=== PATIENT | female | born 1940 | race Caucasian/White ===

== ENCOUNTER 2020-05-03 06:30 | Outpatient (CLI) | payer MEDICARE, OTHER ==
[2020-05-03 14:23] LABS: Hemoglobin 12.2 g/dL (12.0-16.0); Mean Corpuscular HGB CONC 33.4 g/dL (32.0-36.0); Mean Corpuscular Volume 95.6 fL (78.0-98.0); Mean Platelet Volume 8.8 fL (7.4-10.4); Platelet Count 210 thou/uL (130-400); RBC Distribution Width 12.4 % (11.5-14.5); Red Blood Cell (RBC) Count 3.81 mill/uL (4.20-5.40); White Blood Cell (WBC) Count 5.8 thou/uL (4.8-10.8)
[2020-05-03 14:46] LABS: Anion Gap 10 mmol/L (10-20); BUN (Urea Nitrogen) 16 mg/dL (9.8-20.1); Calc. Creatinine Clearance 0 mL/min (70-130); Calcium 9.7 mg/dL (7.8-10.44); Carbon Dioxide 29 mmol/L (23-31); Chloride 105 mmol/L (98-107); Estimated GFR-MDRD 65; Glucose 108 mg/dL (83-110); Potassium 4.1 mmol/L (3.5-5.1); Sodium 140 mmol/L (136-145)
[2020-05-04 14:25] LABS: SARS-CoV-2 MS2 Positive; SARS-CoV-2 N Gene Negative; SARS-CoV-2 S Gene Negative; SARS-CoV-2 orf1ab Negative
== END 2020-05-03 06:31 | disposition home or self-care (01) ==
LOC: LABBT 06:30
PROVIDERS: ATTEND Thoracic Surgery (Cardiothoracic Vascular Surgery)
DX: Z01.812 Encounter for preprocedural laboratory examination (principal); Z11.59 Encounter for screening for other viral diseases; I65.29 Occlusion and stenosis of unspecified carotid artery
CPT/HCPCS: 80048; 85027; U0003; 87635

== ENCOUNTER 2020-05-03 10:30 | Inpatient (IN) | payer MEDICARE, OTHER ==
[2020-05-07] MEDS ORDERED: Nitroglycerin 50 MG/250 ML BOT 250 ML ONE (06:26)
[2020-05-07] MEDS ORDERED: Phenylephrine 10 MG/ML VIAL ONE (06:26)
[2020-05-07] MEDS ORDERED: Fentanyl 100 MCG/2 ML VIAL ONE ×2 (06:26→13:08)
[2020-05-07] MEDS ORDERED: Protamine Sulfate 50 MG/5 ML VIAL ONE (06:33)
[2020-05-07] MEDS ORDERED: Heparin 5,000 UNITS/ML VIAL ONE (06:33)
[2020-05-07] MEDS ORDERED: SUGAMMADEX SODIUM 200 MG/2 ML VIAL ONE (09:41)
[2020-05-07] MEDS ORDERED: traMADol HCl 50 MG TAB PO PRN (10:31)
[2020-05-07] MEDS ORDERED: niCARdipine 25 MG in Sodium Chloride 0.9% 250 ML 250 ML IVPB PRN (10:31)
[2020-05-07] MEDS ORDERED: Norepinephrine 8 MG/0.9% NS 250 ML IVPB PRN (10:31)
[2020-05-07] MEDS ORDERED: Ondansetron PF 4 MG/2 ML Vial IVP PRN (10:31)
[2020-05-07] MEDS ORDERED: Acetaminophen 325 MG TAB PO PRN (10:31)
[2020-05-07] MEDS ORDERED: Fentanyl 100 MCG/2 ML VIAL SLOW IVP PRN (10:31)
[2020-05-07] MEDS ORDERED: niCARdipine 25 MG in Sodium Chloride 0.9% 250 ML 240 ML IVPB PRN (11:16)
--- NOTE | 2020-05-07 11:31 | OP ---
DATE OF PROCEDURE: 05/07/2020 PREOPERATIVE DIAGNOSIS: Left carotid stenosis. PROCEDURE PERFORMED: Left carotid endarterectomy with bovine patch angioplasty. ANESTHESIA: General. ESTIMATED BLOOD LOSS: 100. DESCRIPTION OF PROCEDURE: After adequate anesthesia had been obtained, the patient was prepped and draped. Ultrasound was used to guide the incision and location. An incision was made. It was somewhat lower than anticipated in relation to the carotid bulb, then was extended superiorly. Common internal and external carotid arteries were isolated. Hypoglossal nerve was identified and avoided. After 7500 units of heparin and good ACT level, clamps were applied, arteriotomy performed, and a 12-[place] shunt was placed. Endarterectomy was performed, following which the area was thoroughly irrigated and a bovine patch was used to close the arteriotomy. Prior to completing the suture line, the shunt was removed. Protamine was given to partially reverse the heparin, and after a prolonged period of time awaiting for needle-hole hemostasis, the wound was irrigated and closed in layers and the patient was to be taken to the ICU in guarded condition. Job ID: [id number]
[2020-05-07] MEDS ORDERED: Succinylcholine Chloride 20 MG/ML 10 ml SYRINGE FS ONE (11:51)
[2020-05-07] MEDS ORDERED: Rocuronium Bromide 10 MG/ML (10ML VIAL) ONE (11:51)
[2020-05-07] MEDS ORDERED: Lidocaine 1% PF 5 ML VIAL ONE (11:51)
[2020-05-07] MEDS ORDERED: Ondansetron PF 4 MG/2 ML Vial ONE (11:51)
[2020-05-07] MEDS ORDERED: PROPOFOL 200 MG/20 ML VIAL ONE (11:51)
[2020-05-07] MEDS ORDERED: Losartan 25 MG TAB PO SCH (15:15)
[2020-05-07] MEDS: CEFAZOLIN 2 GM in Premix Bag 1 BAG IVPB SCH ×2 (15:17→21:28)
[2020-05-07] MEDS: Sodium Chloride 0.9% 1,000 ML IV SCH (15:17)
[2020-05-07 15:19] VITALS: BMI 24.6
[2020-05-07] MEDS: hydrALAZINE 20 MG/ML VIAL SLOW IVP PRN (17:23)
[2020-05-07] MEDS ORDERED: traZODone HCl 50 MG TAB PO SCH (21:00)
[2020-05-07] MEDS ORDERED: Atorvastatin Calcium 20 MG TAB PO SCH (21:00)
[2020-05-08] MEDS: Sodium Chloride 0.9% 1,000 ML IV SCH (01:15)
[2020-05-08 04:52] VITALS: TEMP 98.1
[2020-05-08] MEDS: hydrALAZINE 20 MG/ML VIAL SLOW IVP PRN (04:53)
[2020-05-08] MEDS: CEFAZOLIN 2 GM in Premix Bag 1 BAG IVPB SCH (04:54)
[2020-05-08 07:37] VITALS: BP 159/69
[2020-05-08] MEDS ORDERED: Clopidogrel Bisulfate 75 MG TAB PO SCH (09:00)
[2020-05-08] MEDS ORDERED: Losartan 25 MG TAB PO SCH (09:00)
[2020-05-08] MEDS ORDERED: Aspirin Chewable 81 MG TAB PO SCH (09:00)
--- NOTE | 2020-05-08 11:37 | DIS ---
DATE OF ADMISSION: 05/07/2020 DATE OF DISCHARGE: 05/08/2020 HOSPITAL COURSE: The patient was admitted to the hospital, where she underwent elective left carotid endarterectomy. Postoperative course was significant only for some mild hypertension. She will be discharged home on her home medications with no prescriptions. Discharge and followup instructions have been given. Job ID: [id number]
== END 2020-05-08 08:30 | disposition home or self-care (01) | DRG 39 ==
LOC: SURG A 05-07 05:58 → EDSTATUS 05-07 10:30 → 2SE 05-07 14:57
PROVIDERS: ADMIT Thoracic Surgery (Cardiothoracic Vascular Surgery); ATTEND Thoracic Surgery (Cardiothoracic Vascular Surgery)
PROC: 03CL0ZZ Extirpation of Matter from Left Internal Carotid Artery, Open Approach (ICD-10-PCS; principal; 2020-05-07)
PROC: 03UL0KZ Supplement Left Internal Carotid Artery with Nonautologous Tissue Substitute, Open Approach (ICD-10-PCS; 2020-05-07)
DX: I65.22 Occlusion and stenosis of left carotid artery (principal); I10 Essential (primary) hypertension; E78.00 Pure hypercholesterolemia, unspecified; K21.9 Gastro-esophageal reflux disease without esophagitis; Z85.038 Personal history of other malignant neoplasm of large intestine
CPT/HCPCS: J0360; J0690; J1642; J1644; J2001; J2370; J2405; J2704; J2720; J3010

== ENCOUNTER 2020-11-08 20:10 | Inpatient (IN) | payer MEDICARE, OTHER ==
[~2020-11-08 20:10] MED LIST: Iopamidol-370 76% 500 ML 1 ML ONE
[2020-11-08 21:03] LABS: #Eosinphils 0.1 thou/uL (0.0-0.7); #Lymphocytes 2.9 thou/uL (1.20-3.40); #Monocytes 0.5 thou/uL (0.11-0.59); #Neutrophils 3.6 thou/uL (1.40-6.50); %Basophils 0.5 % (0.0-1.0); %Lymphocytes 40.2 % (21.0-51.0); %Monocytes 7.5 % (0.0-10.0); %Neutrophils 49.9 % (42.0-75.0); Hemoglobin 9.9 g/dL (12.0-16.0); Mean Corpuscular HGB CONC 33.4 g/dL (32.0-36.0); Mean Corpuscular Hemoglobin 31.1 pg (27.0-31.0); Mean Corpuscular Volume 93.2 fL (78.0-98.0); Mean Platelet Volume 8.3 fL (7.4-10.4); Platelet Count 223 thou/uL (130-400); RBC Distribution Width 12.1 % (11.5-14.5); Red Blood Cell (RBC) Count 3.18 mill/uL (4.20-5.40); White Blood Cell (WBC) Count 7.2 thou/uL (4.8-10.8)
[2020-11-08 21:09] LABS: PTT 26.6 sec (22.9-36.1); Prothrombin Time 12.9 sec (12.0-14.7)
[2020-11-08 21:24] LABS: ALT (SGPT) 15 U/L (8-55); AST (SGOT) 17 U/L (5-34); Albumin 3.8 g/dL (3.4-4.8); Alkaline Phosphatase 61 U/L (40-110); Anion Gap 13 mmol/L (10-20); BUN (Urea Nitrogen) 25 mg/dL (9.8-20.1); Bilirubin, Total 0.2 mg/dL (0.2-1.2); Calc. Creatinine Clearance 0 mL/min (70-130); Calcium 9.1 mg/dL (7.8-10.44); Carbon Dioxide 25 mmol/L (23-31); Chloride 104 mmol/L (98-107); Globulin 2.8 g/dL (2.4-3.5); Glucose 91 mg/dL (83-110); Potassium 4.2 mmol/L (3.5-5.1); Protein, Total 6.6 g/dL (6.0-8.3); Sodium 138 mmol/L (136-145)
--- NOTE | 2020-11-08 22:09 | CT ---
CT ABDOMEN WITH CONTRAST CT PELVIS WITH CONTRAST: DATE: 11/08/2020 HISTORY: 79-year-old female with abdominal pain and bloody diarrhea COMPARISON: 05/17/2009 TECHNIQUE: IV injection of iodinated contrast media: administered. Oral contrast media:Not administered FINDINGS: Again noted are the multiple surgical clips in the right groin. 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 Again noted are the old healed fracture deformities of bilateral inferior pelvic rami. Small sliding hiatal hernia. Again noted is suture lines around a loop of bowel at midline in the lower anterior peritoneal cavity . Now, that bowel loop, which is a ptotic midline portion of the transverse colon, is fluid-filled and mildly distended to caliber of 4 cm, but without mural thickening. The rest of the right colon is surgically absent, and this transverse colon is anastomosed to small b owel loops. Sigmoid colonic diverticulosis without diverticulitis. Fluid throughout the lumen of the sigmoid, descending, and left half of transverse colon. Questionable fatty liver. No intrahepatic biliary dilation. Dilation of the common bile duct greater than before, due to the caliber of 11 mm. This is probably d ue to reservoir effect from cholecystectomy. Clips in gallbladder fossa. No hydronephrosis. No adrenal mass. Mild diffuse dilation of pancreatic duct, slightly greater than before. No pancreatic mass or acute pancreatitis identified. No splenomegaly. No ascites or pneumoperitoneum. No consolidation or pleural effusion at lung bases Urinary bladder decompressed. IMPRESSION: 1) status post right hemicolectomy, and small bowel to transverse colon anastomosis. 2) liquid colonic stool consistent with diarrhea. 3) small sliding hiatal hernia. 4) status post cholecystectomy 5) aneurysm of right common femoral artery, unchanged since 2008.:
[2020-11-08] MEDS ORDERED: Acetaminophen 325 MG TAB PO PRN (23:07)
[2020-11-08] MEDS ORDERED: Ondansetron PF 4 MG/2 ML Vial IVP PRN (23:07)
[2020-11-08] MEDS ORDERED: Ondansetron ODT 4 MG TAB PO PRN (23:07)
[2020-11-08] MEDS ORDERED: Pantoprazole 40 MG VIAL IVP SCH (23:15)
[2020-11-09 00:03] LABS: Iron 41 ug/dL (50-170); Iron Binding Capacity, Total 289 mcg/dL (265-497)
--- NOTE | 2020-11-09 00:22 | HP ---
PRIMARY CARE DOCTOR: Dr. Campo. CHIEF COMPLAINT: Bloody diarrhea. HISTORY OF PRESENT ILLNESS: The patient is a 79-year-old female with a past medical history significant for colon cancer, status post right hemicolectomy and small bowel to transverse colon anastomosis (2008), CAD x2 stents, on Plavix and aspirin, bilateral CEA, HTN, HLD, and GERD that presents to the emergency department for the above complaint. The patient reports having approximately eight bloody loose stools today, described as bright red in color. She is on aspirin and Plavix. She took her plavix this morning. She takes aspirin at night and has not taken at this time. Her last colonoscopy was three years ago by Dr. Gonsalez, who has since retired. 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 She denies any abdominal pain, nausea, vomiting, or hemoptysis. She denies any urinary symptoms. She denies any chest pain, heart palpitations, lightheadedness, or shortness of breath. She denies any fever or chills. She has no known ill contacts. In the emergency department, the patient presented hypertensive with normal pulse, respirations, SpO2. She is afebrile. CT of the abdomen and pelvis did show the surgical changes. It did show liquid stools consistent with diarrhea in the colon. The patient's hemoglobin was 9.9, hematocrit was 29.6. PT 12.9, INR 1.0. BUN was elevated at 25. The patient is going to be admitted up to the floor for further evaluation. PAST MEDICAL HISTORY: 1. Colon cancer (2008, status post right hemicolectomy and small bowel to transverse colon anastomosis). 2. Hypertension. 3. Hyperlipidemia. 4. GERD. 5. CAD x2 stents (). PAST SURGICAL HISTORY: 1. CAD x2. 2. Bilateral CEA. 3. Appendectomy. 4. Colectomy. SOCIAL HISTORY: The patient lives with her significant other. She is a former smoker, quit greater than 30 years ago. She denies any heavy alcohol or illicit drug use. She is retired and is independent, ambulates without any assistive devices. FAMILY HISTORY: Contributory for cardiac disease, her father of a heart attack at age 53. ALLERGIES: 1. ADHESIVE TAPE. 2. CODEINE. HOME MEDICATIONS: 1. Plavix 75 mg p.o. daily. 2. Aspirin 81 mg p.o. daily. 3. Atorvastatin 20 mg p.o. at bedtime. 4. Amlodipine 5 mg p.o. q.a.m. 5. Olmesartan 20 mg p.o. q.a.m. 6. Esomeprazole 40 mg p.o. q.a.m. 7. Trazodone 50 mg p.o. at bedtime. 8. Alendronate 70 mg once a week in the morning. REVIEW OF SYSTEMS: All review of systems are negative unless otherwise stated in the HPI. PHYSICAL EXAMINATION: VITAL SIGNS: Temperature 97.7, blood pressure 125/58, pulse 79, respirations 18, 98% on room air. Pain 0/10. CONSTITUTIONAL: The patient appears comfortable, lying in bed, reading a book. No acute distress. Nontoxic in appearance. HEAD: Atraumatic, normocephalic. EYES: PERRLA. Extraocular muscles intact. Sclerae nonicteric. ENT: Oropharynx is clear. Uvula midline. No oral lesions. Moist mucous membranes. NECK: Full range of motion. No cervical spinous tenderness. RESPIRATORY/CHEST: Respirations are even and unlabored. Clear to auscultation. No rhonchi, wheezes, or rales. CARDIOVASCULAR: S1 and S2 appreciated. No murmurs, rubs, or gallops. ABDOMEN: Soft, nontender, nondistended. Active bowel sounds. No guarding. No rigidity. No rebound. Negative Rovsing's sign. Negative Heath sign. BACK: Full range of motion. No central spinous tenderness. No CVA tenderness. EXTREMITIES: Bilateral upper extremities are full range of motion, normal strength, sensation intact. Palpable radial pulses. Lower extremities; full range of motion, normal strength, sensation intact. Palpable pedal pulses, no swelling. NEUROLOGIC: A and O x4. GCS 15. PSYCHIATRIC: Denies SI and HI. LABORATORY DATA AND DIAGNOSTICS: CT abdomen and pelvis, impression: 1. Status post right hemicolectomy, and small bowel to transverse colon anastomosis. 2. Liquid colonic stool consistent with diarrhea. 3. Small sliding hiatal hernia. 4. Status post cholecystectomy. 5. Aneurysm of right common femoral artery, unchanged since 2008. WBC 7.2, hemoglobin 9.9, hematocrit 29.6, platelets 223. Coags; PT is 12.9, INR 1.0, aPTT 26.6, sodium 138, potassium 4.2, chloride 104, carbon dioxide 25, BUN 25, creatinine 0.82, glucose 91, calcium 9.1, total bilirubin 0.2, AST 17, ALT 15, alkaline phosphatase 61, albumin 3.8. IMPRESSION: 1. Lower gastrointestinal bleed. 2. Acute blood loss anemia. 3. History of colon cancer, status post right hemicolectomy with small bowel to colon anastomosis. 4. Hypertension. 5. Hyperlipidemia. 6. Gastroesophageal reflux disease. 7. Coronary artery disease. PLAN: A 79-year-old female presents for eight episodes of bloody diarrhea in the setting of remote colon cancer, status post right hemicolectomy with small bowel colon anastomosis, and CAD, taking aspirin and Plavix. The patient's vital signs are stable. We will type and screen, trend H and H q.4 hours. Check orthostatic vital signs and iron studies. We will consult Gastroenterology. We will make the patient n.p.o. with ice chips. We will hold all blood thinning medications. We will start PPIs. We will restart her home medications for HTN, HLD, GERD, and CAD when appropriate. No pharmacological DVT prophylaxis. SCDs for deep venous thrombosis prophylaxis. Protonix for gastrointestinal prophylaxis. Code status is full code. Discussed the case with attending physician, Dr. Maloney. Job ID: [id number] MTDD
[2020-11-09 00:27] LABS: Ferritin 50.77 ng/mL (10-291)
[2020-11-09 01:29] LABS: Hemoglobin 9.1 g/dL (12.0-16.0)
[2020-11-09 01:53] VITALS: BMI 23.3
[2020-11-09 06:01] LABS: SARS-CoV-2 MS2 Positive; SARS-CoV-2 N Gene Negative; SARS-CoV-2 S Gene Negative; SARS-CoV-2 by NAA Not Detected (NotDetected); SARS-CoV-2 orf1ab Negative
[2020-11-09 06:04] LABS: #Eosinphils 0.1 thou/uL (0.0-0.7); #Lymphocytes 2.4 thou/uL (1.20-3.40); #Monocytes 0.5 thou/uL (0.11-0.59); %Basophils 0.5 % (0.0-1.0); %Eosinophils 1.3 % (0.0-10.0); %Lymphocytes 30.2 % (21.0-51.0); %Monocytes 5.6 % (0.0-10.0); %Neutrophils 62.5 % (42.0-75.0); Hemoglobin 8.7 g/dL (12.0-16.0); Mean Corpuscular Hemoglobin 32.8 pg (27.0-31.0); Mean Corpuscular Volume 93.8 fL (78.0-98.0); Platelet Count 171 thou/uL (130-400); RBC Distribution Width 12.1 % (11.5-14.5); Red Blood Cell (RBC) Count 2.66 mill/uL (4.20-5.40); White Blood Cell (WBC) Count 8.1 thou/uL (4.8-10.8)
[2020-11-09 06:09] LABS: ALT (SGPT) 13 U/L (8-55); AST (SGOT) 17 U/L (5-34); Albumin 3.4 g/dL (3.4-4.8); Alkaline Phosphatase 46 U/L (40-110); Anion Gap 13 mmol/L (10-20); BUN (Urea Nitrogen) 25 mg/dL (9.8-20.1); Bilirubin, Total 0.3 mg/dL (0.2-1.2); Calc. Creatinine Clearance 54 mL/min (70-130); Calcium 8.5 mg/dL (7.8-10.44); Carbon Dioxide 22 mmol/L (23-31); Chloride 106 mmol/L (98-107); Globulin 2.3 g/dL (2.4-3.5); Glucose 109 mg/dL (83-110); Potassium 4.3 mmol/L (3.5-5.1); Protein, Total 5.7 g/dL (6.0-8.3); Sodium 137 mmol/L (136-145)
[2020-11-09] MEDS: Pantoprazole 40 MG VIAL IVP SCH ×2 (08:31→20:17)
[2020-11-09 09:41] LABS: Hemoglobin 9.2 g/dL (12.0-16.0)
[2020-11-09 13:02] LABS: Hemoglobin 8.7 g/dL (12.0-16.0)
[2020-11-09] MEDS: Sodium Chloride 0.9% 1,000 ML IV SCH (13:59)
--- NOTE | 2020-11-09 14:01 | CON ---
DATE OF CONSULTATION: 11/09/2020 CONSULTING PHYSICIAN: Michael Mai NP REASON FOR CONSULT: GI bleed. HISTORY OF PRESENT ILLNESS: Ms. Quick is a 79-year-old female, who became ill acutely yesterday with diarrhea and blood. She had about 6 stools, became more bloody. There was no associated cramps or abdominal pain. She reports this was maroon to red. She called her primary physician, Dr. Campo, who recommended that if it persists to come into the emergency room, which she ultimately did, and in the emergency room, she had stable vital signs and no fever. She has been made n.p.o. She has been given no IV fluids. She has been started on some Zofran and some IV Protonix q.12 hours. The patient states she has not had anything like this in the past. She has had no cramps with this or pain. She has had no nausea, or vomiting. She denies taking NSAIDs. She is on Plavix. She had an EGD and colonoscopy by my partner, Dr. Tejinder Gonsalez in 2016 for reflux and a history of colon cancer, which was removed in 2008. She has been without disease. She had no polyps at that time. She had random colon biopsies taken for chronic diarrhea, which were negative. The only thing that has changed recently with medications is that she was put on Augmentin for 7 days in anticipation of a root canal, and she wonders if that caused the diarrhea. She denies taking NSAIDs. She denies having any sick contacts or eating out. Her hemoglobin in April was 12; on admission yesterday at 2044, it was 9.9, it is 8.7 this morning. LABORATORY DATA: White count was normal. INR was 1. BMP was notable for a BUN of 25 with creatinine of 0.79. Normal liver function test. Folate of 16, iron 41, sat 14%, TIBC 289, and ferritin 55. Her last CEA was 1.7 in 2011. PAST MEDICAL HISTORY: Reflux, hypertension, hyperlipidemia. PAST SURGICAL HISTORY: She has had a cardiac stent 2017. She had a carotid endarterectomy in 2019. She had a cholecystectomy and right hemicolectomy in 2008, appendectomy. ALLERGIES: SHE HAS ALLERGIES TO CODEINE. SOCIAL HISTORY: The patient lives with her significant other. Her several years ago. Former smoker. She quit 30 years ago. She does not drink, smoke, or use drugs otherwise. FAMILY HISTORY: Cardiac disease. Father of heart attack, and father had colon cancer. She had a sister with a duodenal cancer, and mother had gastric cancer. HOME MEDICATIONS: 1. Plavix. 2. Aspirin. 3. Atorvastatin. 4. Amlodipine. 5. Olmesartan. 6. Omeprazole. 7. Trazodone. 8. Alendronate. 9. Protonix 40 IV q.12. 10. Zofran. 11. Tylenol. REVIEW OF SYSTEMS: Negative for shortness of breath. She is mildly dizzy. She has not had much urine output. She is very thirsty. She denies any chest pain or shortness of breath, and dyspnea on exertion. PHYSICAL EXAMINATION: VITAL SIGNS: Temperature is 98, pulse 57, blood pressure 129/72. She had a blood pressure of 119/56 on admission sitting, 106/48 standing, 99/58 lying down, 145/67 that was before this morning. GENERAL: She is alert and oriented. HEENT: She has a mildly pale conjunctivae. Oropharynx, no lesions. NECK: Supple. LUNGS: Clear. HEART: Regular without clicks or murmurs. ABDOMEN: Soft and nontender. There is a midline scar without evidence of hernias. There is no palpable hepatosplenomegaly. EXTREMITIES: No clubbing, cyanosis, or edema. RECTAL EXAMINATION: Reveals melenic looking stool. ASSESSMENT: 1. GI bleeding. This may be associated with a diarrheal illness. Her CAT scan showed no overt colonic thickening. This may just be a straight up GI bleed. I do not think she has recurrent cancer. She has had a colonoscopy 3 years ago with no polyps. She is on Plavix and aspirin, but she is on a PPI at home. Diverticular bleeding will be a consideration if she has pandiverticulosis, anastomotic bleeding, or even upper GI bleeding would be all considerations. An infectious etiology is considered as would be Clostridium difficile. 2. Volume depletion. She is orthostatic at 4 O'clock this morning. She is on no IV fluids. It is not clear if she has received any IV fluids. 3. She is hemodynamically stable. 4. History of reflux. 5. History of colon cancer, seemingly in remission. 6. Dilated common bile duct, 11 mm likely previous cholecystectomy, although she does have some family history of duodenal cancers. Mild dilatation of the pancreatic duct on CT with normal liver enzymes. 7. Aneurysm of the right common femoral artery, unchanged from 2009. RECOMMENDATIONS: 1. IV Protonix q.12h. 2. Start IV fluids. 3. EGD and colonoscopy tomorrow. 4. Stool studies as ordered. Job ID: [id number]
--- NOTE | 2020-11-09 16:24 | PDOC.BPN ---
- Brief Progress Note Encounter Date: 11/09/20 Encounter Time: 09:00 patient seen on f/u for gi bleeding. recently admitted checking HG every 6hrs, seen by GI. will undergo egd and colonoscopy tomorrow. patient refers further episodes of bloody stool, one during the night and other in AM. mild decrease HG noted, but not significant, will continue to monitor. denies any chest pain sob or palpitations.
[2020-11-09] MEDS ORDERED: GoLYTELY 4,000 ml Bottle PO SCH (17:00)
[2020-11-09 17:36] LABS: Hemoglobin 8.1 g/dL (12.0-16.0)
[2020-11-09 21:13] LABS: Hemoglobin 8.4 g/dL (12.0-16.0); Mean Corpuscular HGB CONC 32.6 g/dL (32.0-36.0); Mean Corpuscular Hemoglobin 30.6 pg (27.0-31.0); Mean Corpuscular Volume 93.8 fL (78.0-98.0); Mean Platelet Volume 8.5 fL (7.4-10.4); Platelet Count 208 thou/uL (130-400); RBC Distribution Width 12.3 % (11.5-14.5); Red Blood Cell (RBC) Count 2.75 mill/uL (4.20-5.40); White Blood Cell (WBC) Count 7.1 thou/uL (4.8-10.8)
[2020-11-10] MEDS: Sodium Chloride 0.9% 1,000 ML IV SCH ×2 (05:18→16:07)
[2020-11-10 07:26] LABS: #Eosinphils 0.2 thou/uL (0.0-0.7); #Lymphocytes 2.1 thou/uL (1.20-3.40); #Monocytes 0.5 thou/uL (0.11-0.59); #Neutrophils 2.3 thou/uL (1.40-6.50); %Basophils 0.3 % (0.0-1.0); %Eosinophils 3.2 % (0.0-10.0); %Lymphocytes 41.1 % (21.0-51.0); %Monocytes 9.9 % (0.0-10.0); %Neutrophils 45.6 % (42.0-75.0); Hemoglobin 7.6 g/dL (12.0-16.0); Mean Corpuscular HGB CONC 33.8 g/dL (32.0-36.0); Mean Corpuscular Hemoglobin 31.8 pg (27.0-31.0); Mean Corpuscular Volume 94.2 fL (78.0-98.0); Platelet Count 178 thou/uL (130-400); RBC Distribution Width 12.6 % (11.5-14.5); White Blood Cell (WBC) Count 5.1 thou/uL (4.8-10.8)
[2020-11-10 07:31] LABS: Hemoglobin 7.5 g/dL (12.0-16.0); Mean Corpuscular HGB CONC 32.7 g/dL (32.0-36.0); Mean Corpuscular Hemoglobin 30.7 pg (27.0-31.0); Mean Corpuscular Volume 93.9 fL (78.0-98.0); Mean Platelet Volume 8.6 fL (7.4-10.4); Platelet Count 178 thou/uL (130-400); RBC Distribution Width 12.4 % (11.5-14.5); Red Blood Cell (RBC) Count 2.44 mill/uL (4.20-5.40)
[2020-11-10 07:35] LABS: ALT (SGPT) 15 U/L (8-55); AST (SGOT) 17 U/L (5-34); Albumin 3.3 g/dL (3.4-4.8); Alkaline Phosphatase 39 U/L (40-110); Anion Gap 13 mmol/L (10-20); BUN (Urea Nitrogen) 12 mg/dL (9.8-20.1); Bilirubin, Total 0.2 mg/dL (0.2-1.2); Calc. Creatinine Clearance 62 mL/min (70-130); Calcium 7.8 mg/dL (7.8-10.44); Carbon Dioxide 24 mmol/L (23-31); Chloride 108 mmol/L (98-107); Globulin 2.2 g/dL (2.4-3.5); Glucose 109 mg/dL (83-110); Lipase 33 U/L (8-78); Magnesium 1.8 mg/dL (1.6-2.6); Phosphorus 2.4 mg/dL (2.3-4.7); Potassium 3.4 mmol/L (3.5-5.1); Protein, Total 5.5 g/dL (6.0-8.3); Sodium 142 mmol/L (136-145)
[2020-11-10] MEDS: Pantoprazole 40 MG VIAL IVP SCH (07:39)
[2020-11-10] MEDS ORDERED: PROPOFOL 200 MG/20 ML VIAL ONE (10:44)
--- NOTE | 2020-11-10 10:54 | OP ---
DATE OF PROCEDURE: 11/10/2020 PREPROCEDURE DIAGNOSES: 1. Gastrointestinal bleed. 2. Prior history of colorectal cancer with right hemicolectomy and ileocolonic anastomosis. POSTPROCEDURE DIAGNOSES: 1. EGD notable for mild duodenitis, no bleeding, and a hiatal hernia with no ulcers or erosions, otherwise normal. 2. Colonoscopy notable for few diverticula with no active bleeding. 3. Colonoscopy notable for small ulcer with visible vessel at the ileocolonic anastomosis, cauterized with 7-Sloven[place] heater probe and ablated, otherwise normal colonoscopy. RECOMMENDATIONS: 1. Advance diet. 2. CBC in the morning. 3. If no further bleeding, could be discharged home tomorrow. ANESTHESIA: TIVA. PROCEDURE IN DETAIL: After the patient was informed of the risks, benefits, and possible complications of endoscopy including perforation, bleeding, reaction to medication, and aspiration, informed consent was obtained. The patient was brought to endoscopy suite, where she was sedated in gradual fashion. Once she was comfortable, a bite block was placed in the incisural orifice. The endoscope was advanced into esophagus, stomach, into second and third portions of duodenum and slowly removed. There was good visualization of the mucosa. The esophagus was notable for about 3 to 4 cm hiatal hernia with no ulcers or erosions. There was no evidence of Grover's. The stomach was entered and found to be normal on forward and retroflexed views. The duodenal bulb was notable for few small erosions that were nonbleeding with no stigmata of recent bleeding. There was normal duodenum to the third portion. There was no blood or old blood in the upper GI tract. The scope was removed after the stomach was desufflated. The patient was returned to the room. Rectal examination was performed, which was normal. There was no blood in the lower GI tract and the scope was advanced through the anal canal through the colon to the ileocolonic anastomosis and the transverse colon. This was traversed. The distal ileum was normal with no blood or effluent tinged by blood. The anastomosis was notable for an erosion with a small visible vessel that was high risk for rebleeding. This was cauterized with 7-[place]ovenian heater probe. There was no clot in this area. There was no active bleeding at that time, but this was definitely the bleeding source. The scope was then slowly removed. No polyps were seen. Few diverticula were noted in the sigmoid and descending colon with no stigmata of recent bleeding. Retroflexed views in the rectum were normal, and the scope was removed. The patient tolerated the procedure well. There were no complications. Job ID: [id number]
[2020-11-10] MEDS ORDERED: Iron, Sodium Ferric Gluconate 250 MG in Sodium Chloride 0.9% 100 ML IVPB SCH (12:00)
--- NOTE | 2020-11-10 13:44 | PDOC.HOSPP ---
- Subjective Encounter Date: 11/10/20 Encounter Time: 10:00 Subjective: patient seen on f/u for gi bleeding, refers feeling well, no hematochezia or melena noted today, patient will be taken to EGD and colonoscopy today. HG has continued to decreased now at 7.5, 1 unit of prbc was ordered. patient refused to have transfusion, i explained to her that due to her CAD hx this puts her at risk she refers to understand and is willing to get transfusion if the lower than 7. denies any chest pain palpitations or dyspnea - Objective Vital Signs & Weight: Vital Signs (12 hours) Temp Pulse Resp BP BP BP BP 11/10/20 11:03 97.4 F L 83 20 151/72 H 11/10/20 07:52 97.3 F L 92 20 148/49 H 11/10/20 07:30 98.1 F 76 16 115/66 11/10/20 04:00 97.9 F 80 20 147/67 H 110/67 147/67 H Pulse Ox 11/10/20 11:03 96 11/10/20 07:52 96 11/10/20 07:30 97 11/10/20 04:00 100 Weight Weight 131 lb 12.783 oz I&O: 11/09/20 11/10/20 11/11/20 06:59 06:59 06:59 Intake Total 3580 Balance 3580 Result Diagrams: 11/10/20 06:20 11/10/20 06:20 Hospitalist ROS - Review of Systems All other systems reviewed; all pertinent +/- noted in HPI/Subj - Medication Medications: Active Medications Generic Name Dose Route Start Last Admin Trade Name Gopi PRN Reason Stop Dose Admin Sodium Chloride 1,000 mls @ 75 mls/hr 11/09/20 13:15 11/10/20 05:18 Normal Saline 0.9% IV 1,000 mls .[id number] JUAN Administration Ferric Sodium Gluconate 120 mls @ 60 mls/hr 11/10/20 12:00 11/10/20 13:15 Complex 250 mg/ Sodium IVPB 11/10/20 16:00 120 mls Chloride NOW JUAN Administration - Exam General Appearance: NAD, awake alert Eye: PERRL, anicteric sclera ENT: normocephalic atraumatic, no oropharyngeal lesions Neck: supple, symmetric, no JVD, no thyromegaly Heart: RRR, no murmur, no gallops, no rubs, normal peripheral pulses Respiratory: CTAB, no wheezes, no rales, no ronchi Gastrointestinal: soft, non-tender, non-distended, normal bowel sounds Extremities: no cyanosis, no clubbing Skin: normal turgor, no lesions, no rashes Neurological: cranial nerve grossly intact, normal sensation to touch Musculoskeletal: normal tone, normal strength, no muscle wasting Psychiatric: normal affect, normal behavior, A&O x 3 Hosp A/P (1) GI bleeding Code(s): K92.2 - GASTROINTESTINAL HEMORRHAGE, UNSPECIFIED Status: Acute (2) Anemia Code(s): D64.9 - ANEMIA, UNSPECIFIED Status: Acute (3) CAD (coronary artery disease) Code(s): I25.10 - ATHSCL HEART DISEASE OF [place] CORONARY ARTERY W/O ANG PCTRS Status: Acute (4) HTN (hypertension) Code(s): I10 - ESSENTIAL (PRIMARY) HYPERTENSION Status: Acute - Plan gi bleeding - egd and colonoscopy today - gi on case following recommendations - continue ppis - continue to monitor hg - hx of colon CA cad - unable to give antiplatelet medication or medication that might lower bp in the setting of anemia due to gi bleeding htn - holding medication for now in setting of gi bleeding
[2020-11-10 18:59] LABS: #Basophils 0.1 thou/uL (0.0-0.2); #Eosinphils 0.2 thou/uL (0.0-0.7); #Lymphocytes 4.8 thou/uL (1.20-3.40); #Monocytes 0.9 thou/uL (0.11-0.59); #Neutrophils 5.4 thou/uL (1.40-6.50); %Basophils 0.6 % (0.0-1.0); %Lymphocytes 41.9 % (21.0-51.0); %Monocytes 8.1 % (0.0-10.0); %Neutrophils 47.5 % (42.0-75.0); Hemoglobin 9.6 g/dL (12.0-16.0); Mean Corpuscular Hemoglobin 32.2 pg (27.0-31.0); Mean Corpuscular Volume 94.6 fL (78.0-98.0); Mean Platelet Volume 8.4 fL (7.4-10.4); Platelet Count 230 thou/uL (130-400); RBC Distribution Width 12.5 % (11.5-14.5); Red Blood Cell (RBC) Count 2.98 mill/uL (4.20-5.40); White Blood Cell (WBC) Count 11.5 thou/uL (4.8-10.8)
[2020-11-11 05:58] LABS: Band 2 % (5-11); Hemoglobin 8.2 g/dL (12.0-16.0); Hypochromia SLIGHT = 6-15 cells (100X) (0-5/hpf); Lymphocytes 15 % (21-51); MDiff Complete? YES; Mean Corpuscular HGB CONC 34.5 g/dL (32.0-36.0); Mean Corpuscular Hemoglobin 32.9 pg (27.0-31.0); Mean Corpuscular Volume 95.4 fL (78.0-98.0); Mean Platelet Volume 8.6 fL (7.4-10.4); Metamyelocyte 1 % (0-0); Monocytes 5 % (0-10); Neutrophil 75 % (42-75); Platelet Count 183 thou/uL (130-400); Platelet Morphology Comment Appears Adequate; RBC Distribution Width 12.5 % (11.5-14.5); Reactive Lymphocytes 1 % (0-10); Red Blood Cell (RBC) Count 2.48 mill/uL (4.20-5.40)
[2020-11-11] MEDS: Sodium Chloride 0.9% 1,000 ML IV SCH (08:04)
--- NOTE | 2020-11-11 12:04 | PRG ---
DATE OF SERVICE: 11/11/2020 SUBJECTIVE: Ms. Quick is doing well, eating regular diet, having formed stool. OBJECTIVE: Temperature 98, pulse of 80, blood pressure 161/68. ABDOMEN: Soft and nontender. LABORATORY DATA: Hemoglobin is 8.2, white count 12, platelets 183. Stools negative for C diff infection, Campylobacter . ASSESSMENT: 1. Anemia on presentation with lower GI bleeding. Iron was 44 on admission. B12 and folate were normal. 2. Acute bleeding likely from anastomotic ulcer cauterized. Esophagogastroduodenoscopy with mild duodenitis. No ulcers or erosions. Colonoscopy also for diverticular with no active bleeding. 3. Patient received IV iron yesterday. RECOMMENDATION: The patient will go home with iron supplementation. High-fiber diet. Follow up with her primary physician and GI as needed. Job ID: [id number]
--- NOTE | 2020-11-11 12:46 | PDOC.HOSPP ---
- Objective Vital Signs & Weight: Vital Signs (12 hours) Temp Pulse Resp BP Pulse Ox 11/11/20 11:25 98.2 F 76 18 161/68 H 97 11/11/20 07:26 98.1 F 89 16 141/57 H 99 11/11/20 04:00 97.9 F 83 16 148/70 H 95 Weight Weight 131 lb 12.783 oz I&O: 11/10/20 11/11/20 11/12/20 06:59 06:59 06:59 Intake Total 3580 1245 Balance 3580 1245 Result Diagrams: 11/11/20 05:37 11/10/20 06:20 Hospitalist ROS - Medication Medications: Active Medications Generic Name Dose Route Start Last Admin Trade Name Freq PRN Reason Stop Dose Admin Sodium Chloride 1,000 mls @ 75 mls/hr 11/09/20 13:15 11/11/20 08:04 Normal Saline 0.9% IV 1,000 mls .[id number] JUAN Administration Pantoprazole Sodium 40 mg 11/11/20 09:00 11/11/20 08:02 Pantoprazole 40 Mg Tab PO 40 mg DAILY JUAN Administration Hosp A/P (1) Anemia Code(s): D64.9 - ANEMIA, UNSPECIFIED Status: Acute (2) CAD (coronary artery disease) Code(s): I25.10 - ATHSCL HEART DISEASE OF [place] CORONARY ARTERY W/O ANG PCTRS Status: Acute (3) GI bleeding Code(s): K92.2 - GASTROINTESTINAL HEMORRHAGE, UNSPECIFIED Status: Acute (4) HTN (hypertension) Code(s): I10 - ESSENTIAL (PRIMARY) HYPERTENSION Status: Acute - Plan gi bleeding - egd and colonoscopy 11/10 - EGD significant for mild duodenitis, no bleeding, hiatal hernia - colonoscopy w/ few diverticula, small ulcer at IC anastomosis, treated with heat ablation. - recommended advance diet, possible d/c home if no issues. - gi on case following recommendations - continue ppis - continue to monitor hg - hx of colon CA cad - unable to give antiplatelet medication or medication that might lower bp in the setting of anemia due to gi bleeding htn - holding medication for now in setting of gi bleeding
--- NOTE | 2020-11-11 13:05 | PDOC.DS.DS ---
Provider - Provider Date of Admission: 11/10/20 13:49 Admitting Provider: Mark Maloney MD Primary Care Physician: NO PCP PROVIDER Course - Hospital Course Resuscitation Status: 11/09/20 04:16 Resuscitation Status Routine Resuscitation Status: DNAR: NO Resuscitation Discussed with: patient Additional comments: patient informed nurse she'd like to be dnr. informed provider. provider approved order to be dnar. - Labs Lab Results: 11/11/20 05:37 11/10/20 06:20 Abnormal Lab Results - Last 48 hrs 11/08/20 23:25: Crossmatch See Detail 11/09/20 17:06: Hgb 8.1 L, Hct 24.1 L 11/09/20 20:53: RBC 2.75 L, Hgb 8.4 L, Hct 25.8 L 11/10/20 06:20: Potassium 3.4 L, Chloride 108 H, Alkaline Phosphatase 39 L, Serum Total Protein 5.5 L, Albumin 3.3 L, Globulin 2.2 L 11/10/20 06:20: RBC 2.40 L, Hgb 7.6 L, Hct 22.6 L, MCH 31.8 H 11/10/20 06:20: RBC 2.44 L, Hgb 7.5 L, Hct 22.9 L 11/10/20 18:45: WBC 11.5 H, RBC 2.98 L, Hgb 9.6 L, Hct 28.2 L, MCH 32.2 H, Lymphocytes # 4.8 H, Monocytes # 0.9 H 11/11/20 05:37: WBC 12.0 H, RBC 2.48 L, Hgb 8.2 L, Hct 23.6 L, MCH 32.9 H, Band Neuts % (Manual) 2 L, Lymphocytes % (Manual) 15 L Microbiology - Entire Visit 11/09/20 14:12 Stool - Loose Stool Culture - Preliminary 11/09/20 14:12 Stool C. difficile GDH Antigen & Toxins - Final 11/09/20 14:12 Stool - Loose Campylobacter Antigen Assay - Final 11/09/20 14:12 Stool - Loose Shiga Toxin Test - Final - Physical Exam Vitals: Vital Signs (12 hours) Temp Pulse Resp BP Pulse Ox 11/11/20 11:25 98.2 F 76 18 161/68 H 97 11/11/20 07:26 98.1 F 89 16 141/57 H 99 11/11/20 04:00 97.9 F 83 16 148/70 H 95 Weight Weight 131 lb 12.783 oz Physical Exam: The patient was seen and examined on the day of discharge. Problem - Problem (1) Anemia Code(s): D64.9 - ANEMIA, UNSPECIFIED Status: Acute (2) CAD (coronary artery disease) Code(s): I25.10 - ATHSCL HEART DISEASE OF [place] CORONARY ARTERY W/O ANG PCTRS Status: Acute (3) GI bleeding Code(s): K92.2 - GASTROINTESTINAL HEMORRHAGE, UNSPECIFIED Status: Acute (4) HTN (hypertension) Code(s): I10 - ESSENTIAL (PRIMARY) HYPERTENSION Status: Acute Plan - Discharge Medications Prescriptions: Ferrous Sulfate [Iron] 325 mg PO BID #120 tablet Home Medications: Medication Instructions Recorded Confirmed Type Alendronate Sodium [Fosamax] 70 mg PO Q7D 05/02/20 11/09/20 History Amlodipine [Norvasc] 5 mg PO DAILY 05/02/20 11/09/20 History Atorvastatin Calcium 20 mg PO HS 05/02/20 11/09/20 History Calcium Carbonate [Calcium] 1 tab PO DAILY 05/02/20 11/09/20 History Esomeprazole Magnesium [NexIUM] 40 mg PO DAILY 05/02/20 11/09/20 History Fish Oil 1 tab PO BID 05/02/20 11/09/20 History Multivitamin [Multivitamins] 1 tab PO DAILY 05/02/20 11/09/20 History Olmesartan Medoxomil [Benicar] 20 mg PO DAILY 05/02/20 11/09/20 History traZODone HCl [Trazodone HCl] 50 mg PO HS 05/02/20 11/09/20 History Acetaminophen [Tylenol Regular 650 mg PO Q4H PRN tab 11/11/20 Rx Strength] Aspirin [Ecotrin Low Strength] 81 mg PO HS #0 11/11/20 11/09/20 Rx Clopidogrel Bisulfate [Plavix] 85 mg PO DAILY #0 11/11/20 11/09/20 Rx Ferrous Sulfate [Iron] 325 mg PO BID #120 tablet 11/11/20 Rx Allergies: adhesive tape Allergy (Verified 05/02/20 11:07) codeine Allergy (Verified 05/02/20 11:07) - Discharge Instructions Discharge Instructions:: high fiber diet resume aspirin and plavix on 11/14/20 see pcp in about 2 weeks for blood count check go to ED for red or black bowel movement, chest pain, dizziness, shortness of breath, extreme fatigue/weakness, other concerning symptoms Activity:: Activity as Tolerated Additional Dietary Instructions:: high fiber - Follow up Plan Referrals: PROVIDER,NO PCP [Primary Care Provider] - 14 Days (pcp of choice in 2 weeks) Disposition: HOME
[2020-11-11] MEDS ORDERED: Amlodipine 5 MG TAB PO SCH (14:00)
[2020-11-11 15:58] VITALS: BP 169/70; TEMP 98
--- NOTE | 2020-11-12 15:16 | EKG ---
Test Reason : Blood Pressure : / mmHG Vent. Rate : 079 BPM Atrial Rate : 079 BPM P-R Int : 146 ms QRS Dur : 090 ms QT Int : 406 ms P-R-T Axes : 042 030 023 degrees QTc Int : 465 ms Normal sinus rhythm Normal ECG No previous ECGs available Confirmed by RONA BRADFORD, DR. Beach ([id number]) on 11/12/2020 3:16:46 PM Referred By: HORACIO Confirmed By:DR. Baylee REA MD
== END 2020-11-11 14:17 | disposition home or self-care (01) | DRG 378 ==
LOC: ERS 20:10 → T4-B 22:59 → OBSVTOIN 11-10 13:49
PROVIDERS: ADMIT Student in an Organized Health Care Education/Training Program; ATTEND Student in an Organized Health Care Education/Training Program
PROC: 0W3P8ZZ Control Bleeding in Gastrointestinal Tract, Via Natural or Artificial Opening Endoscopic (ICD-10-PCS; principal; 2020-11-10)
PROC: 0DJ08ZZ Inspection of Upper Intestinal Tract, Via Natural or Artificial Opening Endoscopic (ICD-10-PCS; 2020-11-10)
DX: K28.4 Chronic or unspecified gastrojejunal ulcer with hemorrhage (principal); D62 Acute posthemorrhagic anemia; K26.4 Chronic or unspecified duodenal ulcer with hemorrhage; Z20.828 Contact with and (suspected) exposure to other viral communicable diseases; Z66 Do not resuscitate; I10 Essential (primary) hypertension; E78.5 Hyperlipidemia, unspecified; K21.9 Gastro-esophageal reflux disease without esophagitis; K44.9 Diaphragmatic hernia without obstruction or gangrene; K29.80 Duodenitis without bleeding; K57.30 Diverticulosis of large intestine without perforation or abscess without bleeding; I25.10 Atherosclerotic heart disease of native coronary artery without angina pectoris; Z85.038 Personal history of other malignant neoplasm of large intestine; Z95.5 Presence of coronary angioplasty implant and graft; Z79.01 Long term (current) use of anticoagulants; Z79.82 Long term (current) use of aspirin; Z88.5 Allergy status to narcotic agent; Z79.899 Other long term (current) drug therapy; Z90.49 Acquired absence of other specified parts of digestive tract
CPT/HCPCS: 36415; 74177; 80053; 82607; 82728; 82746; 83540; 83550; 83690; 83735; 84100; 85025; 85610; 85730; 86850; 86900; 86901; 87045; 87046; 87324; 87427; 87449; 87635; 93005; 93010; C9113; J2704; J2916; J3490; Q9967; U0003

== ENCOUNTER 2025-07-05 11:12 | Outpatient (CLI) | payer MEDICARE, OTHER | END 2025-07-05 11:13 | disposition home or self-care (01) | LOC: BICMAMMO 11:12 | PROVIDERS: ATTEND Internal Medicine | DX: M81.0 Age-related osteoporosis without current pathological fracture (principal) | CPT/HCPCS: 77080 ==